=== PATIENT | female | born 1995 | race Two or more races ===

== ENCOUNTER 2018-08-12 11:35 | Inpatient (IN) ==
[2018-08-12] MEDS ORDERED: Oxytocin 30 Units/500ml Premix 30 UNITS/500 ML BAG IV.SIG ONE (12:33)
[2018-08-12] MEDS ORDERED: Sod Chloride 0.9% Inj 1,000 ML IV.CONT PRN (12:33)
[2018-08-12] MEDS ORDERED: fentaNYL Citrate Inj 100 MCG/2 ML Ampul IV.PUSH PRN ×2 (12:33)
[2018-08-12] MEDS ORDERED: Naloxone Inj 0.4 MG/ML Vial IV.PUSH PRN (12:33)
[2018-08-12] MEDS ORDERED: Sodium Chlor 0.9% Inj 500 ML IV.SIG PRN (12:33)
--- NOTE | 2018-08-12 12:33 | P.HPOB ---
History of Present Illness Primary Care Physician: No Primary Care Physician Dr. Emmanuel Oshea Chief Complaint: Severe headache visual changes hypertension History of Present Illness: Patient is 23-year-old black female at 40 weeks 5 days who is referred over by Dr. Emmanuel Oshea for elevated blood pressures severe headache and being 5 days overdue. Patient states she has no history of hypertension though her blood pressures are running in the 150 over high 80s sporadically through and certainly today were seeing that in OB ED, she states she has had a severe right frontal headache she describes as a migraine for several days also the right eye is also seeing visual changes flashing lights and sparkly changes in her right eye vision, she is noticed marked increase in her swelling just today her legs and hands. Baby is active NST is reactive and she is not criselda Weeks Gestation:: 40 Para: 1 : 2 Review of Systems All other systems reviewed negative except as stated in HPI Constitutional: Reports headache(s) Eyes: Reports blurry vision, Reports change in vision Ears, Nose, Mouth, and Throat: Reports headache(s) Neurologic: Reports headache(s), Reports other visual disturbances, Reports tingling/numbness/burning sensations PMFSH - Social History I have reviewed the patient's Social History: No - Tobacco History Second Hand Smoke Exposure: No Tobacco Use In Past 30 Days: No Smoking Status: Never smoker - Alcohol History How Often Do You Have a Drink Containing Alcohol: Never - Substance Use History Substance History: No History of Abuse - Travel History History of Recent Travel: No Recent Travel in the [place] Within the Last 8 Weeks: No Recent Travel Out of the Country Within the Last 8 Weeks: No Medications and Allergies Allergies Allergy/AdvReac Type Severity Reaction Status Date / Time No Known Allergies Allergy Verified 08/12/18 11:53 Home Medications Medication Instructions Recorded Confirmed Type Unisom 25mg 1 tab PO HS PRN 08/12/18 History vit-iron fum-folic ac 1 tab PO DAILY 08/12/18 08/12/18 History [ Vitamin] Exam Vital signs: Intake & Output 08/11/18 08/12/18 08/12/18 18:59 06:59 18:59 Weight 132 kg Narrative: GENERAL: Well-nourished, well-developed obese patient. SKIN: Warm and dry. HEAD: Normocephalic and atraumatic. EYES: No scleral icterus. No injection or drainage. ENT: No nasal drainage noted. Mucous membranes pink. Airway patent. NECK: Supple, trachea midline. No JVD. CARDIOVASCULAR: Regular rate and rhythm without murmurs, gallops, or rubs. RESPIRATORY: Breath sounds equal bilaterally. No accessory muscle use. BREASTS: Bilateral exam showed no masses , no retractions, no nipple discharge. ABDOMEN/GI: Abdomen soft, non-tender, bowel sounds present, no rebound, no guarding Gravid to [-40] weeks size Fundal Height: [40-] GENITOURINARY: External Genitalia: intact and normal in appearance BUS glands: [-] Cervix: [post-] Dilatation: [1-] Effacement: [40-] Station: [-3] Presentation: [vtx-] Membranes: [intact ] Uterine Contractions: [none-] FHT's: Category: [1-] Baseline: [144-] Reactive: [R-] Variability: [mod-] Decels: [0-] EXTREMITIES: No cyanosis 3+ edema in lower extremities and hands. BACK: Nontender without obvious deformity. No CVA tenderness. NEUROLOGICAL: Awake and alert. Motor and sensory grossly within normal limits. Five out of 5 muscle strength in all muscle groups. Normal speech.1+ DTRs Caprini VTE Risk Assessment Caprini VTE Risk Assessment: No/Low Risk (score <= 1) Caprini Risk Assessment Model: Point Value = 1 Point Value = 2 Point Value = 3 Point Value = 5 Age 41-60 Minor surgery BMI > 25 kg/m2 Swollen legs Varicose veins or History of unexplained or recurrent spontaneous Oral contraceptives or hormone replacement Sepsis (< 1 month) Serious lung disease, including pneumonia (< 1 month) Abnormal pulmonary function Acute myocardial infarction Congestive heart failure (< 1 month) History of inflammatory bowel disease Medical patient at bed rest Age 61-74 Arthroscopic surgery Major open surgery (> 45 min) Laparoscopic surgery (> 45 min) Malignancy Confined to bed (> 72 hours) Immobilizing plaster cast Central venous access Age >= 75 History of VTE Family history of VTE Factor V Leiden Prothrombin [id number] Lupus anticoagulant Anticardiolipin antibodies Elevated serum homocysteine Heparin-induced thrombocytopenia Other congenital or acquired thrombophilia Stroke (< 1 month) Elective arthroplasty Hip, pelvis, or leg fracture Acute spinal cord injury (< 1 month) Prophylaxis Regimen: Total Risk Factor Score Risk Level Prophylaxis Regimen 0-1 Low Early ambulation 2 Moderate Order ONE of the following: *Sequential Compression Device (SCD) *Heparin 5000 units SQ BID 3-4 Higher Order ONE of the following medications: *Heparin 5000 units SQ TID *Enoxaparin/Lovenox 40 mg SQ daily (WT < 150 kg, CrCl > 30 mL/min) *Enoxaparin/Lovenox 30 mg SQ daily (WT < 150 kg, CrCl > 10-29 mL/min) *Enoxaparin/Lovenox 30 mg SQ BID (WT < 150 kg, CrCl > 30 mL/min) AND/OR *Sequential Compression Device (SCD) 5 or more Highest Order ONE of the following medications: *Heparin 5000 units SQ TID (Preferred with Epidurals) *Enoxaparin/Lovenox 40 mg SQ daily (WT < 150 kg, CrCl > 30 mL/min) *Enoxaparin/Lovenox 30 mg SQ daily (WT < 150 kg, CrCl > 10-29 mL/min) *Enoxaparin/Lovenox 30 mg SQ BID (WT < 150 kg, CrCl > 30 mL/min) AND *Sequential Compression Device (SCD) Assessment and Plan - Diagnosis (1) Gestational hypertension affecting second Code(s): O13.9 - Gestational [-induced] hypertension without significant proteinuria, unspecified trimester Status: Acute (2) Post-dates Code(s): O48.0 - Post-term Status: Acute (3) Headache Code(s): R51 - Headache Status: Acute - Plan This multiparous patient now at 40-41 weeks presents with elevated blood pressures in the 150s over high 80s range with a worsening frontal right sided headache with visual changes in that eye with new onset edema today. She has no proteinuria at this time. NST is reactive no contractions noted, cervix is fingertip 40% -3 vertex Plan for this patient is admission in the hospital and cervical ripening with Cytotec through today and tonight tomorrow AROM with Pitocin to effect delivery. Will check PIH lab and if lab abnormal or blood pressures elevated significantly then would also administer magnesium sulfate IV
[2018-08-12] MEDS ORDERED: Citric Acid/Sodium Citrate Liq 30 ML UDC PO SCH (12:45)
[2018-08-12 13:02] LABS: Baso % (Auto) 0.1 % (0.0-2.0); Eos # (Auto) 0.1 th/mm3 (0.0-0.4); Eos % (Auto) 0.9 % (0.0-4.0); Hematocrit 37.1 % (35.0-46.0); Hemoglobin 12.2 gm/dL (11.6-15.3); Lymph # (Auto) 2.1 th/mm3 (1.0-4.8); Lymph % (Auto) 15.2 % (9.0-44.0); Mean Corpuscular HGB Conc 32.8 % (32.0-36.0); Mean Corpuscular Hemoglobin 28.3 pg (27.0-34.0); Mean Corpuscular Volume 86.2 fL (80.0-100.0); Mean Platelet Volume 10.1 fL (7.0-11.0); Mono # (Auto) 0.9 th/mm3 (0.0-0.9); Mono % (Auto) 6.2 % (0.0-8.0); Neut # (Auto) 10.7 th/mm3 (1.8-7.7); Neut % (Auto) 77.6 % (16.0-70.0); Platelet Count 245 th/mm3 (150-450); White Blood Count 13.8 th/mm3 (4.0-11.0)
[2018-08-12 13:21] LABS: Bilirubin,Urine Negative (Negative); Clarity,Urine Clear (Clear); Color,Urine Yellow (Yellw/Straw); Glucose,Urine (UA) Negative (Negative); Leukocyte Esterase,Urine Negative (Negative); Mucus,Urine Few /lpf (Occasional); Nitrite,Urine Negative (Negative); Specific Gravity,Urine 1.012 (1.002-1.035); Squamous Epithelial Cell,Urine 1 /hpf (0-5)
[2018-08-12 13:24] LABS: Amphetamine Urine With Conf Neg (Neg); Benzodiazepine Urine With Conf Neg (Neg)
[2018-08-12 13:25] LABS: Alanine Aminotransferase 14 U/L (10-53); Albumin 2.4 g/dL (3.4-5.0); Anion Gap 9 meq/L (5-15); Aspartate Aminotransferase 11 U/L (15-37); Blood Urea Nitrogen 6 mg/dL (7-18); Calcium 8.5 mg/dL (8.5-10.1); Carbon Dioxide 20.1 meq/L (21.0-32.0); Chloride 109 meq/L (98-107); Glomerular Filtration Rate Greater Than 89 mL/min (>89); Glucose,Random 119 mg/dL (74-106); Sodium 138 meq/L (136-145); Uric Acid 4.1 mg/dl (2.6-6.0)
[2018-08-12 13:27] LABS: Alkaline Phosphatase 177 U/L (45-117); Total Protein 6.8 g/dL (6.4-8.2)
[2018-08-12] MEDS: Acetaminophen 325 MG Tablet PO PRN ×2 (15:07→21:36)
[2018-08-13] MEDS ORDERED: Lidocaine 1% Inj 50 ML Vial ONE (06:27)
[2018-08-13] MEDS ORDERED: Oxytocin 30 Units/500ml Premix 30 UNITS/500 ML BAG ONE (06:28)
[2018-08-13] MEDS ORDERED: fentaNYL 2MCG-Bupiv 0.125% Epi 150 ML EPIDURAL ONE (06:40)
[2018-08-13] MEDS ORDERED: Lidocaaine 1.5%/Epinephrine 1:200,000 PF Inj 5 ML Amp ONE (06:53)
[2018-08-13] MEDS ORDERED: Lidocaine PF 1% Inj 5 ML Vial ONE (06:53)
[2018-08-13] MEDS ORDERED: Labetalol HCl Inj 100 MG/20 ML Vial ONE (07:36)
--- NOTE | 2018-08-13 10:22 | P.PN ---
Subjective Interval history: The patient progressed to C/C/0 and commenced spontaneous maternal expulsive efforts prior to my arrival. Upon arrival into the patient's room, she was noted to be pushing effectively and C/C/+2 with maternal expulsive efforts and overall reassuring heart tones. With continued maternal expulsive efforts the patient progressed to C/C/+3 with subsequent atraumatic and spontaneous delivery of the head. The anterior shoulder delivered spontaneously and atraumatically followed by spontaneous and atraumatic delivery of the remainder of the . The was vigorous at delivery and was placed on the maternal abdomen. The cord was doubly clamped and cut after a 45 second delay. Cord blood was obtained for the nursery. The placenta was removed spontaneously due to premature separation of the umbilical cord. The placenta appeared to be intact. A first degree vaginal/perineal laceration was noted and repaired with 3 -0 chromic with excellent cosmesis and hemostasis. EBL 150. Apgars 9/9. Mother and are both doing well. Physical Exam Vital signs: Vital Signs 08/12/18 12:10 08/12/18 12:20 08/12/18 14:15 Temperature 98.2 F Pulse Rate 107 H 115 H 101 H Respiratory Rate 18 Blood Pressure 153/83 H 153/73 H 147/88 H 08/12/18 17:13 08/12/18 17:14 08/12/18 18:57 Temperature 98.2 F 98.1 F Pulse Rate 102 H Respiratory Rate 18 Blood Pressure 129/73 08/12/18 18:58 08/12/18 19:00 08/12/18 20:00 Temperature Pulse Rate 95 H Respiratory Rate 18 18 Blood Pressure 141/68 H 08/12/18 20:50 08/12/18 22:00 08/12/18 23:00 Temperature 98.5 F Pulse Rate 102 H Respiratory Rate 18 18 18 Blood Pressure 139/64 08/13/18 00:00 08/13/18 02:13 08/13/18 02:15 Temperature Pulse Rate 101 H Respiratory Rate 18 18 18 Blood Pressure 150/78 H 08/13/18 02:19 08/13/18 06:47 08/13/18 06:50 Temperature 98.7 F Pulse Rate 122 H 104 H Respiratory Rate 22 Blood Pressure 155/89 H 08/13/18 06:55 08/13/18 07:16 08/13/18 07:26 Temperature Pulse Rate 106 H 101 H 104 H Respiratory Rate Blood Pressure 153/86 H 154/87 H 08/13/18 07:30 08/13/18 07:36 08/13/18 07:46 Temperature 98.3 F Pulse Rate 105 H Respiratory Rate 19 Blood Pressure 139/70 134/66 08/13/18 08:20 08/13/18 08:31 08/13/18 08:46 Temperature Pulse Rate 113 H 119 H 109 H Respiratory Rate Blood Pressure 136/71 75/61 L 130/81 08/13/18 09:10 08/13/18 09:16 Temperature Pulse Rate 117 H 112 H Respiratory Rate Blood Pressure 141/68 H 140/86 Intake & Output 08/12/18 08/13/18 08/13/18 18:59 06:59 18:59 Intake Total 1000 / 1000 Balance 1000 / 1000 Weight 132 kg Intake: IV 1000 / 1000 LR 1000 mL Inj 1,000 ML @ 125 1000 / 1000 mls/hr IV.CONT .Q8H [facility] Rx#: [id number] Results - Labs CBC & Chem 7: 08/12/18 12:44 08/12/18 12:44 Laboratory Results - last 24 hr 08/12/18 08/12/18 08/12/18 12:22 12:22 12:44 WBC RBC Hgb Hct MCV MCH MCHC RDW Plt Count MPV Neut % (Auto) Lymph % (Auto) [place] % (Auto) Eos % (Auto) Baso % (Auto) Neut # (Auto) Lymph # (Auto) [place] # (Auto) Eos # (Auto) Baso # (Auto) WBC Differential Differential Comment Sodium Potassium Chloride Carbon Dioxide Anion Gap BUN Creatinine Estimated GFR Random Glucose Uric Acid Calcium Total Bilirubin AST ALT Alkaline Phosphatase Total Protein Albumin Urine Color Yellow Urine Clarity Clear Urine pH 6.0 Ur Specific [place] 1.012 Urine Protein Negative Urine Glucose (UA) Negative Urine Ketones Negative Urine Occult Blood Negative Urine Nitrate Negative Urine Bilirubin Negative Urine Urobilinogen Less than 2 Ur Leukocyte Esterase Negative Urine RBC 1 Urine WBC 1 Ur Squamous Epith Cells 1 Urine Mucus Few H Micro UA Comment Culture not ind Ur Microscopic Review Not Reportable Urine Culture Comments Culture not ind Urine Opiates Screen Neg Ur Barbiturates Screen Neg Ur Amphetamine Screen Neg U Benzodiazepines Scrn Neg Urine Cocaine Screen Neg U Cannabinoids Screen Neg Blood Type O Positive Blood Type Recheck Required Antibody Screen Negative 08/12/18 08/12/18 08/12/18 12:44 12:44 12:44 WBC 13.8 H RBC 4.30 Hgb 12.2 Hct 37.1 MCV 86.2 MCH 28.3 MCHC 32.8 RDW 15.0 Plt Count 245 MPV 10.1 Neut % (Auto) 77.6 H Lymph % (Auto) 15.2 [place] % (Auto) 6.2 Eos % (Auto) 0.9 Baso % (Auto) 0.1 Neut # (Auto) 10.7 H Lymph # (Auto) 2.1 [place] # (Auto) 0.9 Eos # (Auto) 0.1 Baso # (Auto) 0.0 WBC Differential . Differential Comment Auto diff final Sodium 138 Potassium 4.0 Chloride 109 H Carbon Dioxide 20.1 L Anion Gap 9 BUN 6 L Creatinine 0.54 Estimated GFR Greater than 89 Random Glucose 119 H Uric Acid 4.1 Cancelled Calcium 8.5 Total Bilirubin Less than 0.1 L AST 11 L ALT 14 Alkaline Phosphatase 177 H Total Protein 6.8 Albumin 2.4 L Urine Color Urine Clarity Urine pH Ur Specific [place] Urine Protein Urine Glucose (UA) Urine Ketones Urine Occult Blood Urine Nitrate Urine Bilirubin Urine Urobilinogen Ur Leukocyte Esterase Urine RBC Urine WBC Ur Squamous Epith Cells Urine Mucus Micro UA Comment Ur Microscopic Review Urine Culture Comments Urine Opiates Screen Ur Barbiturates Screen Ur Amphetamine Screen U Benzodiazepines Scrn Urine Cocaine Screen U Cannabinoids Screen Blood Type Blood Type Recheck Antibody Screen Assessment and Plan - Assessment (1) Gestational hypertension affecting second Code(s): O13.9 - Gestational [-induced] hypertension without significant proteinuria, unspecified trimester Status: Acute (2) Post-dates Code(s): O48.0 - Post-term Status: Acute (3) Headache Code(s): R51 - Headache Status: Acute
--- NOTE | 2018-08-13 11:10 | P.OBDELI ---
Weeks Gestation: 40 Anesthesia: Epidural Episiotomy: none Vaginal Delivery: Normal Presentation: Occiput anterior Nuchal Cord: None Delayed Cord Clamping (45 sec): Yes Placenta: Manual removal Laceration: Vaginal, Perineal, 1 deg Repair: Chromic interrupted (3-0 chromic with excellent hemostasis and cosmesis) Estimated blood loss (mL): 150 : Male Infant Delivery Date: 08/13/18 Delivery Time: 09:59 Weight: 3635 kg score (1 min): 9 score (5 min): 9
[2018-08-13] MEDS ORDERED: Naloxone Inj 0.4 MG/ML Vial IV.PUSH PRN (11:24)
[2018-08-13] MEDS ORDERED: Acetaminophen 325 MG Tablet PO PRN (11:24)
[2018-08-13] MEDS ORDERED: Bisacodyl 10 MG Supp RECTAL PRN (11:24)
[2018-08-13] MEDS ORDERED: Oxytocin 30 Units/500ml Premix 30 UNITS/500 ML BAG IV.CONT PRN (11:24)
[2018-08-13] MEDS ORDERED: Benzocaine 20% Top Spray 60 ML Can TOPICAL PRN (11:24)
[2018-08-13] MEDS ORDERED: Zolpidem Tartrate 5 MG Tablet PO PRN (11:24)
[2018-08-13] MEDS: Acetaminophen 325 MG Tablet PO PRN (11:31)
[2018-08-13] MEDS: Witch Hazel 50%/Glyderin 12.5% 40 Pad Jar RECTAL PRN (14:48)
[2018-08-13] MEDS ORDERED: Diphtheria/Tetanus/Pertussis Vaccine Inj 0.5 ML Syringe IM ONE (16:00)
[2018-08-13] MEDS ORDERED: Measles/Mumps/Rubella Vaccine Inj 0.5 ML Vial SQ ONE (16:00)
[2018-08-13 16:25] VITALS: O2SAT 96
[2018-08-13] MEDS: Senna/Docusate Sodium 8.6/50 MG Tablet PO SCH (20:31)
[2018-08-14] MEDS: Senna/Docusate Sodium 8.6/50 MG Tablet PO SCH ×2 (09:21→23:23)
--- NOTE | 2018-08-14 10:33 | P.PNOB ---
Subjective Post day: 1 Interval history: Patient's pain is well-controlled. Patient reports eating and drinking without any nausea or vomiting. Patient reports minimal bleeding. Patient has passed gas but no bowel movements. Patient is walking without lower extremity pain or shortness of breath. Objective Vital Signs/I&O: Vital Signs 08/13/18 10:50 08/13/18 11:16 08/13/18 12:04 Temperature 98.9 F 98.8 F Pulse Rate 117 H 108 H Respiratory Rate 16 Blood Pressure 146/68 H 142/75 H Pulse Oximetry 08/13/18 16:25 08/13/18 16:26 08/13/18 19:56 Temperature 98.2 F 98.2 F 98.1 F Pulse Rate 101 H 101 H 111 H Respiratory Rate 18 18 20 Blood Pressure 126/65 126/65 153/69 H Pulse Oximetry 96 08/13/18 23:58 08/14/18 04:00 08/14/18 08:00 Temperature 97.8 F 98.5 F 97.6 F Pulse Rate 102 H 101 H 97 H Respiratory Rate 20 18 20 Blood Pressure 144/72 H 126/61 135/75 Pulse Oximetry Intake & Output 08/13/18 08/14/18 08/14/18 18:59 06:59 18:59 Output Total 150 / 150 Balance -150 / -150 Output: Urine 150 / 150 Result Diagrams: 08/12/18 12:44 08/12/18 12:44 Objective Remarks: GENERAL: Well-nourished, well-developed patient. CARDIOVASCULAR: Regular rate and rhythm without murmurs, gallops, or rubs. RESPIRATORY: Breath sounds equal bilaterally. No accessory muscle use. ABDOMEN/GI: Abdomen soft, non-tender. Fundus: Firm, non-tender at umbilicus. GENITOURINARY: Light to moderate bleeding. EXTREMITIES: No cyanosis or edema, non-tender, without signs of DVT. Medications and IVs: Active Medications Acetaminophen (Tylenol) 650 mg PO Q4H PRN PRN Reason: FEVER >101F Last Admin: 08/13/18 11:31 Dose: 650 mg Acetaminophen (Tylenol) 650 mg PO Q4H PRN PRN Reason: PAIN SCALE 1 TO 2 Al Hydroxide/Mg Hydroxide (Milk Of Magnesia Liq) 30 ml PO Q12H PRN PRN Reason: Mild Constipation Benzocaine (Americaine 20% Top [place]) 1 spray TOPICAL Q4H PRN PRN Reason: For Perineum Discomfort Last Admin: 08/13/18 14:48 Dose: 1 spray Bisacodyl (Dulcolax Supp) 10 mg RECTAL DAILY PRN PRN Reason: SEVERE CONSITIPATION Citric Acid/Sodium Citrate (Sodium Citrate/Citric Acid Liq) 30 ml PO [employer] [facility] Stop: 08/16/18 12:44 Lactated Ringer's (Lr 1000 Ml Inj) 1,000 mls @ 3,000 mls/hr IV.SIG UNSCH PRN PRN Reason: compromise or epidural Last Admin: 08/13/18 07:31 Dose: 3,000 mls/hr Lactated Ringer's (Lr 1000 Ml Inj) 1,000 mls @ 125 mls/hr IV.CONT .Q8H [facility] Last Admin: 08/12/18 21:51 Dose: 125 mls/hr Sodium Chloride (Ns Inj) 500 mls @ 1,000 mls/hr IV.SIG UNSCH PRN PRN Reason: SEE LABEL COMMENTS Sodium Chloride (Ns Inj) 1,000 mls @ 100 mls/hr IV.CONT .Q10H PRN PRN Reason: SEE LABEL COMMENTS Oxytocin (Pitocin 30 Units/Ns 500 Ml Premix) 30 units in 500 mls @ 100 mls/hr IV.CONT UNSCH PRN PRN Reason: Heavy bleeding Ibuprofen (Motrin) 800 mg PO Q8H PRN PRN Reason: For Cramping Last Admin: 08/14/18 04:15 Dose: 800 mg Lactulose (Lactulose Liq) 30 ml PO DAILY PRN PRN Reason: SEVERE CONSITIPATION Lidocaine HCl (Xylocaine 1% Inj) 10 ml INFILTRATN PRN PRN PRN Reason: For episiotomy repair Stop: 08/14/18 12:32 Lidocaine HCl (Xylocaine 1% Inj) 0.1 ml I-DERMAL PRN PRN PRN Reason: For IV start Stop: 08/15/18 12:32 Mineral Oil (Muri-Lube Oil) 10 ml TOPICAL PRN PRN PRN Reason: PRN perineal massage Misoprostol (Cytotec) 25 mcg PO Q4H [facility] Last Admin: 08/14/18 09:21 Dose: Not Given Naloxone HCl (Narcan Inj) 0.1 mg IV.PUSH Q2M PRN PRN Reason: for opiate reversal Ondansetron HCl (Zofran Inj) 4 mg IV.PUSH Q6H PRN PRN Reason: NAUSEA OR VOMITING Ondansetron HCl (Zofran Odt) 4 mg PO Q6H PRN PRN Reason: NAUSEA OR VOMITING Oxycodone/Acetaminophen (Percocet 5/325 Mg) 1 tab PO Q4H PRN PRN Reason: PAIN SCALE 3 TO 5 Last Admin: 08/13/18 19:06 Dose: 1 tab Oxycodone/Acetaminophen (Percocet 5/325 Mg) 2 tab PO Q4H PRN PRN Reason: PAIN SCALE 6 TO 10 Last Admin: 08/14/18 04:16 Dose: 2 tab Senna/Docusate Sodium (Mira-Colace) 1 tab PO BID [facility] Last Admin: 08/14/18 09:21 Dose: 1 tab Sennosides (Senokot) 17.2 mg PO Q12H PRN PRN Reason: Moderate Constipation Sodium Chloride (Ns Flush) 2 ml IV.FLUSH BID [facility] Last Admin: 08/14/18 09:21 Dose: Not Given Sodium Chloride (Ns Flush) 2 ml IV.FLUSH PRN PRN PRN Reason: FLUSH AFTER USING IV ACCESS Witch Maura/Glycerin (Tucks Pads) 1 applicatio RECTAL QID PRN PRN Reason: HEMORRHOIDS Last Admin: 08/13/18 14:48 Dose: 1 applicatio Zolpidem Tartrate (Ambien) 5 mg PO HS PRN PRN Reason: SLEEP Assessment and Plan - Diagnosis (1) Vaginal delivery Code(s): O80 - Encounter for full-term uncomplicated delivery Status: Acute Plan: Patient was counseled to do 6 weeks of pelvic rest. Patient was counseled to follow up in 6 weeks. Patient requested follow-up and contraception. --AF VSS --Continue routine care --Motrin and Percocet when necessary for pain --Encourage OOB --Pelvic rest for 6 weeks will need follow-up appointment at that time. --Contraception: --Anticipate discharge tomorrow
[2018-08-15] MEDS: Witch Hazel 50%/Glyderin 12.5% 40 Pad Jar RECTAL PRN (01:45)
[2018-08-15] MEDS: Senna/Docusate Sodium 8.6/50 MG Tablet PO SCH (08:01)
--- NOTE | 2018-08-15 08:04 | P.PNOB ---
Subjective Post day: 2 Interval history: day #2 AFVSS overnight. Decreased lochia. Denies dysuria. No breast pain. Appetite good. No nausea or vomiting. Ambulating well. Denies calf pain or shortness of breath. Otherwise, she is doing well this morning and has no other complaints. Objective Vital Signs/I&O: Vital Signs 08/14/18 20:00 Temperature 97.5 F L Pulse Rate 93 H Respiratory Rate 18 Blood Pressure 135/71 Result Diagrams: 08/12/18 12:44 08/12/18 12:44 Objective Remarks: GENERAL: Well-nourished, well-developed patient. CARDIOVASCULAR: Regular rate and rhythm without murmurs, gallops, or rubs. RESPIRATORY: Breath sounds equal bilaterally. No accessory muscle use. ABDOMEN/GI: Abdomen soft, non-tender. Fundus: Firm, non-tender at umbilicus. GENITOURINARY: Light to moderate bleeding. EXTREMITIES: No cyanosis or edema, non-tender, without signs of DVT. Medications and IVs: Active Medications Acetaminophen (Tylenol) 650 mg PO Q4H PRN PRN Reason: FEVER >101F Last Admin: 08/13/18 11:31 Dose: 650 mg Acetaminophen (Tylenol) 650 mg PO Q4H PRN PRN Reason: PAIN SCALE 1 TO 2 Al Hydroxide/Mg Hydroxide (Milk Of Magnesia Liq) 30 ml PO Q12H PRN PRN Reason: Mild Constipation Benzocaine (Americaine 20% Top [place]) 1 spray TOPICAL Q4H PRN PRN Reason: For Perineum Discomfort Last Admin: 08/13/18 14:48 Dose: 1 spray Bisacodyl (Dulcolax Supp) 10 mg RECTAL DAILY PRN PRN Reason: SEVERE CONSITIPATION Citric Acid/Sodium Citrate (Sodium Citrate/Citric Acid Liq) 30 ml PO STRETCH BOX TENDER [facility] Stop: 08/16/18 12:44 Lactated Ringer's (Lr 1000 Ml Inj) 1,000 mls @ 3,000 mls/hr IV.SIG UNSCH PRN PRN Reason: compromise or epidural Last Admin: 08/13/18 07:31 Dose: 3,000 mls/hr Lactated Ringer's (Lr 1000 Ml Inj) 1,000 mls @ 125 mls/hr IV.CONT .Q8H [facility] Last Admin: 08/12/18 21:51 Dose: 125 mls/hr Sodium Chloride (Ns Inj) 500 mls @ 1,000 mls/hr IV.SIG UNSCH PRN PRN Reason: SEE LABEL COMMENTS Sodium Chloride (Ns Inj) 1,000 mls @ 100 mls/hr IV.CONT .Q10H PRN PRN Reason: SEE LABEL COMMENTS Oxytocin (Pitocin 30 Units/Ns 500 Ml Premix) 30 units in 500 mls @ 100 mls/hr IV.CONT UNSCH PRN PRN Reason: Heavy bleeding Ibuprofen (Motrin) 800 mg PO Q8H PRN PRN Reason: For Cramping Last Admin: 08/14/18 17:33 Dose: 800 mg Lactulose (Lactulose Liq) 30 ml PO DAILY PRN PRN Reason: SEVERE CONSITIPATION Lidocaine HCl (Xylocaine 1% Inj) 0.1 ml I-DERMAL PRN PRN PRN Reason: For IV start Stop: 08/15/18 12:32 Mineral Oil (Muri-Lube Oil) 10 ml TOPICAL PRN PRN PRN Reason: PRN perineal massage Misoprostol (Cytotec) 25 mcg PO Q4H [facility] Last Admin: 08/14/18 23:23 Dose: Not Given Naloxone HCl (Narcan Inj) 0.1 mg IV.PUSH Q2M PRN PRN Reason: for opiate reversal Ondansetron HCl (Zofran Inj) 4 mg IV.PUSH Q6H PRN PRN Reason: NAUSEA OR VOMITING Ondansetron HCl (Zofran Odt) 4 mg PO Q6H PRN PRN Reason: NAUSEA OR VOMITING Last Admin: 08/14/18 11:38 Dose: 4 mg Oxycodone/Acetaminophen (Percocet 5/325 Mg) 1 tab PO Q4H PRN PRN Reason: PAIN SCALE 3 TO 5 Last Admin: 08/14/18 23:01 Dose: 1 tab Oxycodone/Acetaminophen (Percocet 5/325 Mg) 2 tab PO Q4H PRN PRN Reason: PAIN SCALE 6 TO 10 Last Admin: 08/14/18 17:32 Dose: 2 tab Senna/Docusate Sodium (Mira-Colace) 1 tab PO BID [facility] Last Admin: 08/15/18 08:01 Dose: 1 tab Sennosides (Senokot) 17.2 mg PO Q12H PRN PRN Reason: Moderate Constipation Sodium Chloride (Ns Flush) 2 ml IV.FLUSH BID [facility] Last Admin: 08/15/18 08:01 Dose: Not Given Sodium Chloride (Ns Flush) 2 ml IV.FLUSH PRN PRN PRN Reason: FLUSH AFTER USING IV ACCESS Witch Maura/Glycerin (Tucks Pads) 1 applicatio RECTAL QID PRN PRN Reason: HEMORRHOIDS Last Admin: 08/15/18 01:45 Dose: 1 applicatio Zolpidem Tartrate (Ambien) 5 mg PO HS PRN PRN Reason: SLEEP Assessment and Plan - Diagnosis (1) Vaginal delivery Code(s): O80 - Encounter for full-term uncomplicated delivery Status: Acute Plan: - Plan 23y/o female who is PPD#2 s/p vaginal delivery. -Continue routine care. -Motrin PRN pain. -Encouraged OOB. Advised pelvic rest for 6 wks. -Re: ctrl, she would like to follow-up IUD placement with her outpatient OB. -D/c likely today. vaughnw Dr. Silva
[2018-08-15 09:36] VITALS: BP 142/84; PULSE 102; RESP 20; TEMP 98.4
== END 2018-08-15 13:13 | disposition home or self-care (01) ==
LOC: HOBED 11:35 → H2E 12:35 → H1EA 08-13 11:58
PROVIDERS: ADMIT Obstetrics & Gynecology Maternal & Fetal Medicine; ATTEND Obstetrics & Gynecology Maternal & Fetal Medicine